=== PATIENT | female | born 2000 | race American Indian/Alaskan Native ===

== ENCOUNTER 2022-05-21 02:28 | Emergency (ER) | payer MEDICAID, OTHER ==
[2022-05-21 02:39] VITALS: BP 139/77; PULSE 132
[2022-05-21] MEDS ORDERED: levETIRAcetam 500 MG Tab PO ONE (02:41)
== END 2022-05-21 02:50 ==
LOC: JD.ED 02:28
DX: F10.920 Alcohol use, unspecified with intoxication, uncomplicated (principal); G43.909 Migraine, unspecified, not intractable, without status migrainosus
CPT/HCPCS: 99282; 99284; A9270-GY